=== PATIENT | female | born 1990 | race Caucasian/White ===

== ENCOUNTER 2017-06-21 10:52 | Emergency (ER) | payer OTHER ==
[2017-06-21] MEDS ORDERED: predniSONE 20 MG TAB ONE (11:34)
[2017-06-21] MEDS ORDERED: Benzonatate 100 MG CAP ONE (11:34)
[2017-06-21] MEDS ORDERED: AMOXicillin 250 MG CAP ONE (11:34)
[2017-06-21] MEDS ORDERED: Tamsulosin HCl 0.4 MG CAP ONE (11:34)
== END 2017-06-21 11:40 | disposition home or self-care (01) ==
LOC: MADERS 10:52
DX: J20.9 Acute bronchitis, unspecified (principal); D64.9 Anemia, unspecified; F41.9 Anxiety disorder, unspecified
CPT/HCPCS: 99283; J7506

== ENCOUNTER 2018-11-25 10:57 | Emergency (ER) | payer OTHER ==
[2018-11-25] MEDS ORDERED: Sodium Chloride 0.9% 1,000 ML ONE (11:37)
[2018-11-25 12:02] LABS: #Basophils 0.1 thou/uL (0.0-0.2); #Eosinphils 0.2 thou/uL (0.0-0.7); #Lymphocytes 2.6 thou/uL (1.20-3.40); #Monocytes 0.5 thou/uL (0.11-0.59); #Neutrophils 3.9 thou/uL (1.40-6.50); %Basophils 1.2 % (0.0-1.0); %Eosinophils 2.3 % (0.0-10.0); %Lymphocytes 36.2 % (21.0-51.0); %Monocytes 6.4 % (0.0-10.0); %Neutrophils 53.8 % (42.0-75.0); Hemoglobin 13.3 g/dL (12.0-16.0); Mean Corpuscular HGB CONC 33.1 g/dL (32.0-36.0); Mean Corpuscular Hemoglobin 28.8 pg (27.0-31.0); Mean Platelet Volume 6.4 fL (7.4-10.4); Platelet Count 287 thou/uL (130-400); RBC Distribution Width 11.6 % (11.5-14.5); Red Blood Cell (RBC) Count 4.61 mill/uL (4.20-5.40); White Blood Cell (WBC) Count 7.3 thou/uL (4.8-10.8)
[2018-11-25 12:07] LABS: Bilirubin Negative (Negative); Blood, Urine Negative (Negative); Clarity Clear (Clear); Glucose, Urine (Dipstick) Negative (Negative); Leukocyte Negative (Negative); Nitrite Negative (Negative); Protein, Urine (Dipstick) Negative (Neg-Trace); Urobilinogen 0.2 mg/dL (Less than 2)
[2018-11-25 12:14] LABS: BHCG - Serum Negative (NEGATIVE); Pregs Control Background? CLEAR/WHITE (CLR/WHITE); Pregs Control Bar Appear? YES (CONTROL BAR)
[2018-11-25 12:22] LABS: ALT (SGPT) 18 U/L (8-55); AST (SGOT) 17 U/L (5-34); Albumin 4.9 g/dL (3.5-5.0); Alkaline Phosphatase 56 U/L (40-150); Anion Gap 15 mmol/L (10-20); BUN (Urea Nitrogen) 12 mg/dL (7.0-18.7); Bilirubin, Total 0.5 mg/dL (0.2-1.2); CK (CPK) 129 U/L (29-168); Calc. Creatinine Clearance 0 mL/min (70-130); Calcium 9.4 mg/dL (7.8-10.44); Carbon Dioxide 22 mmol/L (22-29); Chloride 106 mmol/L (98-107); Estimated GFR-MDRD 83; Globulin 3.4 g/dL (2.4-3.5); Glucose 79 mg/dL (70-105); Potassium 3.6 mmol/L (3.5-5.1); Protein, Total 8.3 g/dL (6.0-8.3); Sodium 139 mmol/L (136-145)
== END 2018-11-25 12:58 ==
LOC: MADERS 10:57
DX: R53.1 Weakness (principal); R19.7 Diarrhea, unspecified; R42 Dizziness and giddiness; F41.9 Anxiety disorder, unspecified; F42.9 Obsessive-compulsive disorder, unspecified; D64.9 Anemia, unspecified; Z79.899 Other long term (current) drug therapy
CPT/HCPCS: 80053; 81003; 82550; 84484; 84703; 85025; 93005; 96360; J7050

== ENCOUNTER 2019-12-30 17:26 | Emergency (ER) | payer OTHER ==
[2019-12-30] MEDS ORDERED: Lidocaine 1% 20 ML MDV ONE (17:47)
[2019-12-30] MEDS ORDERED: Cephalexin 500 MG CAP ONE (18:28)
== END 2019-12-30 18:30 | disposition home or self-care (01) ==
LOC: MADERS 17:26
DX: L02.211 Cutaneous abscess of abdominal wall (principal); F41.9 Anxiety disorder, unspecified; F32.9 Major depressive disorder, single episode, unspecified; Z79.899 Other long term (current) drug therapy
CPT/HCPCS: 10060

== ENCOUNTER 2020-01-01 11:39 | Emergency (ER) | payer OTHER | END 2020-01-01 12:12 | disposition home or self-care (01) | LOC: MADERS 11:39 | DX: L02.211 Cutaneous abscess of abdominal wall (principal); D64.9 Anemia, unspecified; F41.9 Anxiety disorder, unspecified; F32.9 Major depressive disorder, single episode, unspecified; F42.9 Obsessive-compulsive disorder, unspecified; Z79.899 Other long term (current) drug therapy | CPT/HCPCS: 99282 ==

== ENCOUNTER 2020-01-03 12:11 | Emergency (ER) | payer OTHER | END 2020-01-03 12:50 | disposition home or self-care (01) | LOC: MADERS 12:11 | DX: Z48.817 Encounter for surgical aftercare following surgery on the skin and subcutaneous tissue (principal); D64.9 Anemia, unspecified; F41.9 Anxiety disorder, unspecified; F32.9 Major depressive disorder, single episode, unspecified; F42.9 Obsessive-compulsive disorder, unspecified; Z79.899 Other long term (current) drug therapy | CPT/HCPCS: 99282 ==